=== PATIENT | female | born 1995 | race Caucasian/White ===

== ENCOUNTER → 2022-08-01 | Outpatient (CLI) | payer BC, OTHER ==
--- NOTE | 2022-08-01 12:09 | XR ---
EXAMINATION TYPE: XR chest 2V DATE OF EXAM: 08/01/2022 COMPARISON: None INDICATION: Acute cough wheezing chest pain TECHNIQUE: Frontal and lateral views of the chest are obtained. FINDINGS: The heart size is normal. The pulmonary vasculature is normal. The lungs are clear. Retrosternal space appears unremarkable. IMPRESSION: 1. No acute pulmonary process.
== END | disposition home or self-care (01) ==
LOC: RADXRYALE 11:04
PROVIDERS: ATTEND Internal Medicine
DX: R05.1 Acute cough (principal); R06.2 Wheezing
CPT/HCPCS: 71046